=== PATIENT | male | born 1935 | race Caucasian/White ===

== ENCOUNTER 2017-10-12 00:03 | Emergency (ER) | payer MEDICARE, MEDICAID ==
[~2017-10-12] VITALS: Ht 162.6 cm; Wt 63.5 kg
--- NOTE | 2017-10-12 00:11 | NUR ---
PT RECEIVED BY RA60 C/O GEN WEAKNESS X1 HOUR NEAR RED LINE. NO SOB NOTED AT THIS TIME. NO C/O PAIN. WILL CONTINUE TO MONITOR FOR ANY CHANGES. VSS NAD
[2017-10-12] MEDS ORDERED: IV NS 0.9% 500 ML BAG IV ONE (00:30)
--- NOTE | 2017-10-12 00:30 | NUR ---
BLOOD SENT OFF TO LAB
--- NOTE | 2017-10-12 00:32 | NUR ---
PT OFF TO CT SCAN
--- NOTE | 2017-10-12 00:40 | NUR ---
POWER NUT RUNNER OPERATOR AT BEDSIDE
--- NOTE | 2017-10-12 00:42 | NUR ---
PT BACK FROM CT SCAN
[2017-10-12 00:45] LABS: BASOPHILS % (AUTO) 0.4 % (0.0-2.0); EOSINOPHILS # (AUTO) 0.1 /CMM (0.0-0.7); EOSINOPHILS % (AUTO) 1.6 % (0.0-6.0); HEMATOCRIT 36 % (39-51); HEMOGLOBIN 12.1 g/dL (13.5-17.5); LYMPHOCYTES # (AUTO) 1.9 /CMM (0.8-4.8); LYMPHOCYTES % (AUTO) 26.8 % (20.0-44.0); MEAN CORPUSCULAR HEMOGLOBIN 32 PG (26.0-33.0); MEAN CORPUSCULAR HGB CONC 34 g/dl (31.0-36.0); MEAN CORPUSCULAR VOLUME 92 fL (80-96); MONOCYTES % (AUTO) 14.1 % (2.0-12.0); NEUTROPHILS # (AUTO) 4.1 /CMM (1.8-8.9); NEUTROPHILS % (AUTO) 57.1 % (43.0-81.0); PLATELET COUNT (AUTO) 316 /CMM (150-450); RDW COEFFICIENT OF VARIATION 14.8 (11.5-15.0); RED BLOOD CELL COUNT(AUTO) 3.85 MIL/uL (4.5-6.0); WHITE BLOOD COUNT (AUTO) 7.2 K/uL (4.3-11.0)
[2017-10-12 00:46] LABS: APPEARANCE,URINE CLEAR (CLEAR); BILIRUBIN,URINE NEGATIVE (NEGATIVE); BLOOD, URINE 1+ Ery/uL (NEGATIVE); COLOR,URINE YELLOW (YELLOW); KETONES,URINE NEGATIVE (NEGATIVE); LEUKOCYTE ESTERASE ,URINE NEGATIVE (NEGATIVE); NITRITE, URINE NEGATIVE (NEGATIVE); PH,URINE 5.5 (5.0-8.0); PROTEIN,URINE 2+ mg/dl (NEGATIVE); UGLUCOSE NEGATIVE (NEGATIVE); UROBILINOGEN,URINE 0.2 EU/dL (0.2)
[2017-10-12 01:06] LABS: CALCIUM, SERUM 8.7 mg/dL (8.5-10.1); CARBON DIOXIDE 28 mmol/L (21-32); CHLORIDE 107 mmol/L (98-107); CREATININE 0.9 mg/dL (0.6-1.3); GLUCOSE 73 mg/dL (74-106); POTASSIUM 3.5 mmol/L (3.5-5.1); SODIUM SERUM 143 mmol/L (136-145); UREA NITROGEN, BLOOD 19 mg/dL (7-18)
[2017-10-12 01:07] LABS: TROPONIN I 0.054 ng/mL (0.00-0.056)
[2017-10-12 01:11] LABS: ALANINE AMINOTRANSFERASE 22 U/L (12-78); ALBUMIN 3.4 g/dL (3.4-5.0); ALCOHOL, BLOOD < 3 mg/dL (0-0); ALKALINE PHOSPHATASE 101 U/L (46-116); ASPARTATE AMINOTRANSFERASE 21 U/L (15-37); BILIRUBIN,DIRECT 0.1 mg/dL (0.0-0.2); BILIRUBIN,TOTAL 0.2 mg/dL (0.2-1.0); TOTAL PROTEIN, SERUM 7.5 g/dL (6.4-8.2)
[2017-10-12 01:12] LABS: INR 1.07 (0.87-1.13); SALICYLATE 0.3 mg/dL (2.8-20.0)
[2017-10-12 01:19] LABS: BACTERIA,URINE Few /HPF (None Seen); SQUAMOUS EPITHELIAL CELL,UR Rare /HPF (None Seen); WBC,URINE 0-2 /HPF (0-3)
--- NOTE | 2017-10-12 02:36 | NUR ---
PT IS IN STABLE CONDITION. VSS NAD. WILL CONTINUE TO MONITOR FOR ANY CHANGES
[2017-10-12 05:26] VITALS: BP 149/80
--- NOTE | 2017-10-12 05:26 | NUR ---
PT WAITING IN WIAITING ROOM FOR CAB
== END 2017-10-12 05:28 | disposition home or self-care (01) ==
LOC: ER 00:06 → EDBD 00:06 → ER 05:28
DX: R53.1 Weakness (principal); I73.9 Peripheral vascular disease, unspecified; R51 Headache
CPT/HCPCS: 36415; 70450; 71045; 80048; 80076; 80305; 80329; 81001; 84484; 85025; 85730; 93005; 99285; A4606; G0480; J7040; 81000-TC; Z7610

== ENCOUNTER 2019-07-14 14:22 | Emergency (ER) | payer MEDICARE, MEDICAID ==
[~2019-07-14] VITALS: Ht 180.3 cm; Wt 66.2 kg
--- NOTE | 2019-07-14 14:56 | NUR ---
patient [id number] homeless, c/o lower back pain x 1 week. On room air, breathing evenly and unlabored. connected to the monitor and pulse ox. Kept comfortable, will continue to monitor accordingly.
[2019-07-14] MEDS ORDERED: CYCLOBENZAPRINE 10 MG TABLET PO ONE (15:00)
[2019-07-14] MEDS ORDERED: KETOROLAC TROMETHAMINE INJ 60 MG/2 ML VIAL IM ONE ×3 (15:00→15:30)
[2019-07-14] MEDS ORDERED: CYCLOBENZAPRINE 10 MG TABLET ONE (15:03)
[2019-07-14 16:11] VITALS: BP 128/66
--- NOTE | 2019-07-14 16:12 | NUR ---
Patient given written and verbal discharge instructions. Patient verbalizes understanding of instructions. Patient is ambulatory with steady gait. Refuses offer of assisted placement. Patient given list of available shelters in surrounding area. food and tap card provided.
== END 2019-07-14 16:11 | disposition home or self-care (01) ==
LOC: ER 14:23
DX: G89.29 Other chronic pain (principal); M54.5 Low back pain
CPT/HCPCS: 96372; 99283; J1885

== ENCOUNTER 2021-06-29 20:42 | Inpatient (IN) | payer OTHER ==
[~2021-06-29] VITALS: Ht 177.8 cm; Wt 67.7 kg
--- NOTE | 2021-06-29 21:05 | NUR ---
pt bibra c/o rt hip pain. Pt aaox2 breathing evenly and unlabored. Per pt he has "been walking a lot" and that is the cause of his pain. Pt attached to monitor and pox. PA at bedside for eval. Pt given blanket and call light within reach
[2021-06-29] MEDS ORDERED: ACETAMINOPHEN 325 MG TABLET ONE (21:26)
[2021-06-29] MEDS ORDERED: ACETAMINOPHEN 325 MG TABLET PO ONE (21:30)
--- NOTE | 2021-06-29 22:00 | NUR ---
pt watching tv, attached to monitor and pox
--- NOTE | 2021-06-29 23:00 | NUR ---
Pt sitting quietly, watching tv. vss
--- NOTE | 2021-06-30 | NUR ---
pt watching tv, attached to monitor and pox
--- NOTE | 2021-06-30 01:00 | NUR ---
Patient is resting comfortably in bed with eyes closed. Easily aroused. VSS
--- NOTE | 2021-06-30 02:00 | NUR ---
pt sleeping, attached to monitor, breathing evenly and unlabored
--- NOTE | 2021-06-30 03:00 | NUR ---
Patient is resting comfortably in bed with eyes closed. Easily aroused. VSS
--- NOTE | 2021-06-30 04:00 | NUR ---
pt sleeping, attached to monitor, breathing evenly and unlabored
--- NOTE | 2021-06-30 06:05 | NUR ---
Patient is resting comfortably in bed with eyes closed. Easily aroused. VSS
--- NOTE | 2021-06-30 08:00 | NUR ---
THE PATIENT IS ALERT AND ORIENTED X4. DENIES PAIN. IN ROOM AIR AND DENIES SOB. RESPIRATION REGULAR AND UNLABORED. WILL CONTINUE TO MONITOR THE PATIENT.
--- NOTE | 2021-06-30 10:16 | NUR ---
FINISHING TECHNICIAN AT THE BEDSIDE
--- NOTE | 2021-06-30 11:23 | NUR ---
BLOOD SPECIMEN COLLECTED AND SENT TO THE LAB
--- NOTE | 2021-06-30 11:23 | NUR ---
COVID SWAB DONE AND SENT TO THE LAB
[2021-06-30 11:41] LABS: CALCIUM, SERUM 9.2 mg/dL (8.5-10.1); CARBON DIOXIDE 27 mmol/L (21-32); CHLORIDE 103 mmol/L (98-107); CREATININE 1.9 mg/dL (0.6-1.3); GLUCOSE 110 mg/dL (74-106); POTASSIUM 4.6 mmol/L (3.5-5.1); SODIUM SERUM 140 mmol/L (136-145); UREA NITROGEN, BLOOD 40 mg/dL (7-18)
--- NOTE | 2021-06-30 11:54 | NUR ---
DR SOSA AT THE BEDSIDE
[2021-06-30 12:02] LABS: BASOPHILS % (AUTO) 0.4 % (0.0-2.0); EOSINOPHILS % (AUTO) 4.6 % (0.0-6.0); HEMATOCRIT 35 % (39-51); HEMOGLOBIN 11.5 g/dL (13.5-17.5); LYMPHOCYTES # (AUTO) 1.4 K/uL (0.8-4.8); LYMPHOCYTES % (AUTO) 16.8 % (20.0-44.0); MEAN CORPUSCULAR HGB CONC 33 g/dl (31.0-36.0); MEAN CORPUSCULAR VOLUME 91 fL (80-96); MONOCYTES % (AUTO) 11.9 % (2.0-12.0); NEUTROPHILS # (AUTO) 5.5 K/uL (1.8-8.9); NEUTROPHILS % (AUTO) 66.3 % (43.0-81.0); PLATELET COUNT (AUTO) 491 K/uL (150-450); RED BLOOD CELL COUNT(AUTO) 3.89 MIL/uL (4.5-6.0); WHITE BLOOD COUNT (AUTO) 8.2 K/uL (4.3-11.0)
[2021-06-30] MEDS ORDERED: MAG HYDROX/AL HYDROX/SIMETH 30 ML UDC PO PRN ×2 (12:30→14:15)
[2021-06-30] MEDS ORDERED: MAGNESIUM HYDROXIDE 30 ML UDC PO PRN ×2 (12:30→14:15)
[2021-06-30] MEDS ORDERED: ONDANSETRON HCL/PF 4 MG/2 ML VIAL IVP PRN ×2 (12:30→14:15)
[2021-06-30] MEDS ORDERED: HYDROCODONE/APAP 5/325MG TABLET PO PRN (12:30)
[2021-06-30] MEDS ORDERED: ZOLPIDEM TARTRATE 5 MG TABLET PO PRN ×2 (12:30→14:15)
[2021-06-30] MEDS ORDERED: ACETAMINOPHEN 325 MG TABLET PO PRN ×2 (12:30→14:15)
[2021-06-30] MEDS ORDERED: Z GUARD REMEDY 2 OZ OINT TP PRN ×2 (12:30→14:15)
[2021-06-30] MEDS ORDERED: IV 1/2NS 1000 ML 1,000 ML IV PRN ×2 (12:30→14:15)
[2021-06-30] MEDS ORDERED: SERT25TA PO (12:46)
[2021-06-30] MEDS ORDERED: LAMO25TA10 PO (12:46)
[2021-06-30] MEDS ORDERED: TRAM50TA2 PO (12:46)
[2021-06-30] MEDS ORDERED: LISI-768 PO (12:46)
[2021-06-30] MEDS ORDERED: IBUP-1955 PO (12:46)
[2021-06-30] MEDS ORDERED: MORP15TA7 PO (12:46)
[2021-06-30] MEDS ORDERED: DOCU-141 PO (12:46)
[2021-06-30] MEDS ORDERED: ASPI-1169 PO (12:46)
--- NOTE | 2021-06-30 14:05 | NUR ---
ROOM 116-1
--- NOTE | 2021-06-30 14:08 | NUR ---
REPORT GIVEN TO NURSE APARNA
--- NOTE | 2021-06-30 14:10 | NUR ---
THE PATIENT IS TRANSFERED TO [facility] IN STABLE CONDITION AND PER POLICY
[2021-06-30] MEDS: HYDROCODONE/APAP 5/325MG TABLET PO PRN (14:57)
[2021-06-30] MEDS: LamoTRIgine 25 MG TABLET PO SCH (18:11)
[2021-06-30] MEDS: MORPHINE SULFATE SR 15 MG TABLET.SA PO SCH (18:13)
--- NOTE | 2021-06-30 19:15 | NUR ---
MS RN OPENING NOTE PATIENT RESTING IN BED, ALERT/ORIENTED X 3, PT ABLE TO MAKE NEEDS KNOWN. PT STABLE ON ROOM AIR, NO S/S OF DISTRESS OR SOB NOTED, BREATHING EVEN AND UNLABORED. LEFT AC #20G IV ACCESS INTACT AND FLUSHING WELL, SALINE LOCKED. NO COMPLAINTS OF PAIN AT THIS TIME. LEFT UPPER CHEST WOUND DRESSING CLEAN, DRY AND INTACT. SAFETY MEASURES IN PLACE: CALL LIGHT WITHIN REACH, BED LOCKED IN LOW POSITION, SIDE RAILS UP X 3, BED ALARM ON. WILL CONTINUE TO MONITOR PATIENT
[2021-06-30 20:00] VITALS: BP 186/79
--- NOTE | 2021-06-30 20:20 | NUR ---
MS RN NOTE CONTACTED DR. HERNÁNDEZ REGARDING PT'S HIGH BP OF 186/79, HR: 78. NEW ORDER FOR HYDRALAZINE 10 MG IVP PRN Q8H FOR SBP > 150. ORDER READBACK AND CONFIRMED. ORDER CARRIED OUT. WILL CONTINUE TO MONITOR PATIENT.
[2021-06-30] MEDS: hydrALAZINE HCL IV 20 MG VIAL IV PRN (20:59)
--- NOTE | 2021-06-30 23:44 | NUR ---
MS RN NOTE CONTACTED DR. HERNÁNDEZ BECAUSE PT'S BP IS STILL HIGH: BP 187/84, HR: 92, SPO2: 100%. NEW ONE TIME ORDER FOR HYDRALAZINE 10 MG IVP. ORDER READBACK AND CONFIRMED. ORDER CARRIED OUT. WILL CONTINUE TO MONITOR PATIENT.
[2021-07-01] MEDS ORDERED: hydrALAZINE HCL IV 20 MG VIAL IV ONE ×2 (00:05→23:45)
[2021-07-01 04:03] VITALS: BP 127/68
[2021-07-01] MEDS: HYDROCODONE/APAP 5/325MG TABLET PO PRN ×2 (04:55→20:17)
--- NOTE | 2021-07-01 06:25 | NUR ---
MS RN CLOSING NOTE PATIENT SLEEPING IN BED, ALERT/ORIENTED X 2-3, PT FORGETFUL/CONFUSED AT TIMES THROUGHOUT SHIFT. PT STABLE ON ROOM AIR, NO S/S OF DISTRESS OR SOB NOTED, BREATHING EVEN AND UNLABORED. LEFT AC #20G IV ACCESS INTACT AND RUNNING 1/2 NS @ 75 ML/HR. PATIENT'S BP NO LONGER HIGH, 4 AM BP WAS 127/68. PATIENT UNSTABLE WHEN WALKING WITH CANE SO BEDSIDE COMMODE PLACED BY BED TO BE USED WITH ASSIST. MEDICATIONS GIVEN ORDERED, PT NEEDS MET THROUGHOUT SHIFT. SAFETY MEASURES IN PLACE: CALL LIGHT WITHIN REACH, BED LOCKED IN LOW POSITION, SIDE RAILS UP X 3, BED ALARM ON. WILL ENDORSE TO DAY SHIFT NURSE FOR CONTINUITY OF CARE
[2021-07-01] MEDS ORDERED: PANTOPRAZOLE 40 MG TABLET.DR PO SCH (07:30)
--- NOTE | 2021-07-01 07:30 | NUR ---
MS RN OPENING NOTE RECEIVED PATIENT AWAKE ON BED AND A/O X3 WITH CONFUSION. ABLE TO MAKE NEEDS KNOWN. ON ROOM AIR TOLERATING WELL. NO SOB NOTED. NOT IN DISTRESS. WITH NO COMPLAINTS OF PAIN OR DISCOMFORT AT THIS TIME. WITH IV ACCESS AT LEFT AC G20 WITH 1/2NS AT 75ML/HR. SAFETY MEASURES IN PLACE. CALL LIGHT WITHIN REACH. BED ON LOWEST AND LOCKED POSITION, SIDE RAILS UP X3. BED ALARM ON. WILL CONTINUE TO MONITOR.
[2021-07-01] MEDS: DOCUSATE SODIUM 100 MG CAPSULE PO SCH (08:28)
[2021-07-01] MEDS: MORPHINE SULFATE SR 15 MG TABLET.SA PO SCH ×2 (08:28→16:34)
[2021-07-01] MEDS: ASPIRIN 81 MG TAB.CHEW PO SCH (08:28)
[2021-07-01] MEDS: PANTOPRAZOLE 40 MG TABLET.DR PO SCH (08:29)
[2021-07-01] MEDS: SERTRALINE HCL 25 MG TABLET PO SCH (08:29)
[2021-07-01] MEDS: LamoTRIgine 25 MG TABLET PO SCH ×2 (08:29→16:34)
[2021-07-01] MEDS ORDERED: LISINOPRIL (5MG) 5 MG TABLET PO SCH (09:00)
[2021-07-01 12:00] VITALS: BP 130/79
--- NOTE | 2021-07-01 14:22 | NUR ---
SS Consult: SS consult requested for homelessness & failure to thrive. The pt. is an 85-year-old male in [place] admitted for failure to thrive. Per EMR, pt. [place] of pain in his left hip. He is homeless". SW met with pt. bedside. Pt. is A&O X 2 appears unkempt, sun-burned and makes avoidant eye contact. Pt. is confused with possible dementia. Pt.'s mood is euthymic, ambivalent and guarded. SW explored pt.s living situation and familial/ support system. Pt. stated he is with no children and had experienced homelessness for about 20 years. Pt. stated he was recently residing at maybe a [facility] but he felt unwanted by other residents and management and so he left. Pt. could not provide facility name, address or phone number or provide any other HX. P.t. denies drug or alcohol abuse. Pt. denies SI/HI and denies hallucinations. Per EMR, pt. ambulates with unsteady gate with cane so he was give a bed side commode. Per pt. he receives SSDI. Plan: DAVID discussed situation with Jacque ALFARO who will work on possible placement: SNF or B&[facility]. Pt. stated if he cannot receive placement he will have to find a motel. Pt. signed homeless waiver and it was placed in the pt.'s chart. SW provided pt. with homeless resources and pt. accepted them. Year-round shelters: [facility] [place] [address] [place] [address] ; [facility] [place] [address] [place] [address]; [facility] [id number] [facility] [address] Winter Shelters: Shani [place] Provider: [facility] [place] Address: [address], [address] # of Beds: 47 Population Served: [facility] 6 | [facility] Wendie Ewing [place] Provider: [facility] Address: [address] [facility], [address] # of Beds: 66 Population Served: [facility] Provider: [facility] to Serve Address: [address] [facility], [address] # of Beds: 56 Population Served: Luc Eddie [place] Provider: /Ms. Melendez'isha House Address: [address] [facility], [address] # of Beds: 49 Population Served: [facility] [place] 8 | [facility] Provider: First to Serve Address: [address] [facility], [address] # of Beds: 37 Population Served: [facility] Hygiene: [facility]: [address] [facility] ; [facility] [address] [facility] ; [facility] [address] [facility] . Food Resources: [facility] at [facility]- [address] [facility]; Meet Each Need with Dignity ([facility]) [address] [facility]; [facility] [address] [facility]; [facility] 8554 [facility] Mental Health resources provided: [facility] [address] [place], [place] [id number] ; [facility] [address] [facility] [address], [place], [place] [id number] ; Taylor Collazo [facility] [address] [place] [address] ; [facility] [address] [place], [place] [id number] Healthcare Clinics: [facility] [address] [facility], [address] [place]. [place] ; [facility] [address] [facility] [address] [place] [address]; [facility] [address] [facility] [place] [address] 223) [phone] Counseling--Outpatient [facility] [address] [place], [place] [address] (Specializes in in-depth psychotherapy for emotional distress: anxiety, depression, interpersonal conflicts, life transitions, childhood abuse) [facility] Guidance Center [address] [place], [place] [phone] (Assist with solving problem marital difficulties, separation & divorce, aging parents, & grief, chronic & terminal illness) [facility] [address] [place] [address] (Deal with loss & grief, anxiety, marital difficulties) Homebound/Mental Health Services [address] [facility] [address] [place] [address] (Provide in-home mental services to people who are incapable of leaving their homes) [facility] Needs of the Elderly Senior Service/Resource Center [address] [place] [address] [facility] [address] [place] [address] PSYCHIATRIC OUTPATIENT SERVICES [facility] Partial Hospitalization and Intensive Outpatient Program (Managed Care and [place] Only)[address] [facility] [phone] [facility] Partial Hospitalization and Outpatient [id number] [facility] [address] [place], [place] [phone] [facility] [id number] [facility] [address] [place], [place] [phone] [facility] Partial Hospitalization and Outpatient [id number] [place], [phone] Substance Abuse resources provided included: [facility] Substance Abuse Self-Helpline (SAS) ; CRI -HELP [address] Ariel [facility] [id number] ; [facility] [address] [facility] [address] ; [facility] [address] [facility]. [facility] [address] ; [facility]ically [facility] [address] [facility] [address] ; [facility] [address] [facility] [address] ; [facility] [address] [facility] [address] ; [facility] Substance Abuse Helpline([facility] [place] ; [facility] ; [facility] [place]; [facility] [place]; [facility] [place]; [facility] Adriano Coronel; [employer] [facility] [place]; [facility] [place]; [facility]; [facility] [place]; Alcoholics Anonymous -SFV; Tr-Ctwk-Tnelijp ; Marijuana Anonymous -SFV; Narcotics Anonymous [email or web address];
--- NOTE | 2021-07-01 18:37 | NUR ---
MS RN CLOSING NOTES PATIENT RESTING ON BED AND A/O X3 WITH CONFUSION AT TIMES. ABLE TO MAKE NEEDS KNOWN. ON ROOM AIR TOLERATING WELL. NO SOB NOTED. NOT IN DISTRESS. WITH NO COMPLAINTS OF PAIN OR DISCOMFORT AT THIS TIME. WITH IV ACCESS AT LEFT AC G20 WITH 1/2NS AT 75ML/HR. SAFETY MEASURES IN PLACE. CALL LIGHT WITHIN REACH. BED ON LOWEST AND LOCKED POSITION, SIDE RAILS UP X3. BED ALARM ON. WILL ENDORSE TO NEXT SHIFT FOR ELVIRA.
[2021-07-01 20:00] VITALS: BP 120/59
--- NOTE | 2021-07-01 20:22 | NUR ---
MS-1/SPOT WELDER BODY ASSEMBLY PT COMPLIANT WITH FALL RISK MEASURES. PACING AROUND HIS ROOM IS HIGHLY AGITATED AND SWEARING AT STAFF. I'M SITTING OUTSIDE PT ROOM FOR CLOSER MONITORING.
--- NOTE | 2021-07-01 20:49 | NUR ---
MS-1/ZINA UNABLE TO OBTAIN URINE SPECIMEN. PT IS UNCOOPERATIVE WITH PROCEDURES NECESSARY TO OBTAIN URINE. WANTS TO USE THE TOILET ALONE AND WITHOUT BEING BOTHERED. EXPLAINED TO PT THAT THE DOCTOR ORDERED A URINE TEST, BUT PT SAYS HE DOESN'T CARE.
[2021-07-02 04:00] VITALS: BP 135/70
[2021-07-02 07:01] LABS: BASOPHILS % (AUTO) 0.3 % (0.0-2.0); EOSINOPHILS % (AUTO) 5.2 % (0.0-6.0); HEMATOCRIT 30 % (39-51); LYMPHOCYTES # (AUTO) 1.7 K/uL (0.8-4.8); LYMPHOCYTES % (AUTO) 20.9 % (20.0-44.0); MEAN CORPUSCULAR HGB CONC 34 g/dl (31.0-36.0); MEAN CORPUSCULAR VOLUME 89 fL (80-96); MONOCYTES % (AUTO) 13.2 % (2.0-12.0); NEUTROPHILS # (AUTO) 4.8 K/uL (1.8-8.9); NEUTROPHILS % (AUTO) 60.4 % (43.0-81.0); PLATELET COUNT (AUTO) 408 K/uL (150-450); RED BLOOD CELL COUNT(AUTO) 3.31 MIL/uL (4.5-6.0)
[2021-07-02 07:14] LABS: CREATINE KINASE, TOTAL 230 U/L (39-308)
[2021-07-02 07:22] LABS: ALANINE AMINOTRANSFERASE 21 U/L (12-78); ALBUMIN 2.8 g/dL (3.4-5.0); ALKALINE PHOSPHATASE 83 U/L (46-116); ASPARTATE AMINOTRANSFERASE 24 U/L (15-37); BILIRUBIN,TOTAL 0.4 mg/dL (0.2-1.0); CALCIUM, SERUM 8.2 mg/dL (8.5-10.1); CARBON DIOXIDE 26 mmol/L (21-32); CHLORIDE 105 mmol/L (98-107); CREATININE 1.4 mg/dL (0.6-1.3); GLUCOSE 91 mg/dL (74-106); MAGNESIUM 1.8 mg/dL (1.8-2.4); PHOSPHORUS 2.9 mg/dL (2.5-4.9); POTASSIUM 4.4 mmol/L (3.5-5.1); SODIUM SERUM 138 mmol/L (136-145); TOTAL PROTEIN, SERUM 6.8 g/dL (6.4-8.2); UREA NITROGEN, BLOOD 26 mg/dL (7-18)
[2021-07-02] MEDS: LamoTRIgine 25 MG TABLET PO SCH ×2 (08:44→16:17)
[2021-07-02] MEDS: MORPHINE SULFATE SR 15 MG TABLET.SA PO SCH ×2 (08:44→16:18)
[2021-07-02] MEDS: SERTRALINE HCL 25 MG TABLET PO SCH (08:44)
[2021-07-02] MEDS: ASPIRIN 81 MG TAB.CHEW PO SCH (08:44)
[2021-07-02] MEDS: DOCUSATE SODIUM 100 MG CAPSULE PO SCH (08:44)
[2021-07-02] MEDS: PANTOPRAZOLE 40 MG TABLET.DR PO SCH (08:44)
[2021-07-02] MEDS: ENSURE ENLIVE CHOC 237 ML CAN PO SCH ×3 (10:27→17:33)
[2021-07-02 12:00] VITALS: BP 135/70
[2021-07-02 15:17] LABS: BILIRUBIN,URINE SMALL (NEGATIVE); COLOR,URINE YELLOW (YELLOW); LEUKOCYTE ESTERASE ,URINE NEGATIVE (NEGATIVE); NITRITE, URINE NEGATIVE (NEGATIVE); PH,URINE 5.5 (5.0-8.0); PROTEIN,URINE 30 mg/dl (NEGATIVE); UGLUCOSE NEGATIVE (NEGATIVE)
[2021-07-02 15:48] LABS: CREATININE, URINE 241.6 MG/DL (30.0-125.0)
[2021-07-02 15:55] LABS: BACTERIA,URINE Few /HPF (None Seen); SQUAMOUS EPITHELIAL CELL,UR Few /HPF (None Seen); WBC,URINE 0-2 /HPF (0-3)
--- NOTE | 2021-07-02 17:54 | NUR ---
RN CLOSING NOTES PT IS STABLE AND ATE 100% DINNER. A/O X4. VS STABLE AND WNL. UPPER L CHEST WOUND WITHOUT DRAINAGE. ALL MEDS GIVEN. PATIENT ON RA SAT > 95%. PT AMBULATING WITH BED AT LOWEST POSITION. WILL CONTINUE TO MONITOR.
[2021-07-02] MEDS: HYDROCODONE/APAP 5/325MG TABLET PO PRN (18:36)
--- NOTE | 2021-07-02 19:00 | NUR ---
MS RN OPENING NOTE RECEIVED PT IN BED, RESTING. A/O X2. PT IS ON ROOM AIR, NO SOB OR RESPIRATORY DISTRESS NOTED, NO C/O PAIN. RESPIRATIONS EVEN AND UNLABORED, IV ACCESS NOTED IN LEFT AC G#20, INTACT, PATENT AND FLUSHING WELL. FALL AND SAFETY MEASURES IN PLACE AND MAINTAINED AT ALL TIMES. BED ALARM ON, BED IN LOW AND LOCKED POSITION, HOB ELEVATED TO SEMI FOWLERS POSITION, CALL LIGHT AND TABLE WITHIN REACH, SIDE RAILS UP X2. WILL CONTINUE TO MONITOR.
[2021-07-02 20:00] VITALS: BP 118/79
[2021-07-03 04:00] VITALS: BP 117/69
[2021-07-03] MEDS: PANTOPRAZOLE 40 MG TABLET.DR PO SCH (07:33)
--- NOTE | 2021-07-03 07:46 | NUR ---
MS RN OPENING NOTE RECEIVED PT AWAKE IN BED. A/O X3. PT IS STABLE ON ROOM AIR WITH NO SOB OR S/S OF RESPIRATORY DISTRESS NOTED. PT HAS NO C/O PAIN OR DISCOMFORT AT THIS TIME. IV ACCESS IN LAC #20, INTACT AND PATENT. LEFT UPPER CHEST WOUND C/D/I. SAFETY PRECAUTIONS MAINTAINED. BED IN LOWEST LOCKED POSITION, HOB ELEVATED, SIDE RAILS UP X2. CALL LIGHT AND TABLE WITHIN REACH. WILL CONTINUE TO MONITOR.
[2021-07-03 08:00] VITALS: BP 186/86
[2021-07-03 08:05] LABS: CALCIUM, SERUM 8.5 mg/dL (8.5-10.1); CARBON DIOXIDE 25 mmol/L (21-32); CHLORIDE 103 mmol/L (98-107); CREATININE 1.4 mg/dL (0.6-1.3); GLUCOSE 95 mg/dL (74-106); POTASSIUM 4.3 mmol/L (3.5-5.1); SODIUM SERUM 136 mmol/L (136-145); UREA NITROGEN, BLOOD 28 mg/dL (7-18)
[2021-07-03] MEDS: SERTRALINE HCL 25 MG TABLET PO SCH (08:24)
[2021-07-03] MEDS: ASPIRIN 81 MG TAB.CHEW PO SCH (08:24)
[2021-07-03] MEDS: LamoTRIgine 25 MG TABLET PO SCH ×2 (08:24→16:15)
[2021-07-03] MEDS: DOCUSATE SODIUM 100 MG CAPSULE PO SCH (08:24)
[2021-07-03] MEDS: MORPHINE SULFATE SR 15 MG TABLET.SA PO SCH ×2 (08:26→16:15)
[2021-07-03] MEDS: ENSURE ENLIVE CHOC 237 ML CAN PO SCH ×3 (08:55→16:15)
[2021-07-03 12:00] VITALS: BP 131/71
[2021-07-03] MEDS: HYDROCODONE/APAP 5/325MG TABLET PO PRN ×3 (13:10→22:00)
--- NOTE | 2021-07-03 13:10 | NUR ---
RN NOTE - PAIN PT C/O ACHING PAIN IN LEFT HIP, RATED 7/10 ON 0-10 PAIN SCALE. VSS. PER PT REQUEST, ADMINISTERED NORCO [phone] PO Q4H PRN FOR PAIN. WILL CONTINUE TO MONITOR.
--- NOTE | 2021-07-03 18:25 | NUR ---
MS RN CLOSING NOTE PT IS AWAKE IN BED. A/O X3. PT IS STABLE ON ROOM AIR WITH NO SOB OR S/S OF RESPIRATORY DISTRESS NOTED. PT HAS NO C/O PAIN OR DISCOMFORT AT THIS TIME. IV ACCESS IN LAC #20, INTACT AND PATENT. LEFT UPPER CHEST WOUND C/D/I. ALL NEEDS HAVE BEEN MET. SAFETY PRECAUTIONS MAINTAINED AT ALL TIMES. BED IN LOWEST LOCKED POSITION, HOB ELEVATED, SIDE RAILS UP X2. CALL LIGHT AND TABLE WITHIN REACH. WILL ENDORSE TO ONCOMING NURSE FOR ELVIRA.
[2021-07-03 20:00] VITALS: BP 149/72
[2021-07-04 04:00] VITALS: BP 148/70
[2021-07-04 05:06] VITALS: BP 153/75
--- NOTE | 2021-07-04 07:00 | NUR ---
RN NOTES, NO SIGNIFICANT CHANGE IN CONDITION DURING THE NIGHT, WOUND CONSULT PLACED FOR LEFT UPPER CHEST ABRASION/INGROW TISSUE WILL ENDORSE CONTINUITY OF CARE TO ONCOMING NURSE.
[2021-07-04] MEDS: ENSURE ENLIVE CHOC 237 ML CAN PO SCH ×3 (08:00→17:09)
[2021-07-04] MEDS: LamoTRIgine 25 MG TABLET PO SCH ×2 (08:11→17:08)
[2021-07-04] MEDS: MORPHINE SULFATE SR 15 MG TABLET.SA PO SCH ×2 (08:12→17:09)
[2021-07-04] MEDS: PANTOPRAZOLE 40 MG TABLET.DR PO SCH (08:18)
[2021-07-04] MEDS: DOCUSATE SODIUM 100 MG CAPSULE PO SCH (09:00)
[2021-07-04] MEDS: SERTRALINE HCL 25 MG TABLET PO SCH (09:00)
[2021-07-04] MEDS: ASPIRIN 81 MG TAB.CHEW PO SCH (09:00)
--- NOTE | 2021-07-04 10:11 | NUR ---
WOUND CARE CONSULT: PT SEEN FOR RAISED LESION TO LEFT CHEST, PRESENT ON ADMISSION. PT STATES HAS HAD THIS FOR 60 YEARS. SURGICAL CONSULT CALLED TO DR TRAORE. PT IS AMBULATORY AND CONTINENT. CONCUR WITH CURRENT TREATMENT OF XEROFORM DSG WITH [facility]. IN AGREEMENT WITH PLAN OF CARE.
[2021-07-04 12:00] VITALS: BP 148/76
--- NOTE | 2021-07-04 13:59 | NUR ---
PATIENT AMBULATING IN [address] WAY ESCORTED BACK TO ROOM, PULLED OUT HIS OWN IV ON JODY, SITE CLEANSED PRESSURE APPLIED AND BANDAGE NO EXCESSIVE BLEEDING NOTED, EDUCATE IMPORTANCE OF KEEPING IV INTACT FOR NEED AND USE, STATED "I DO NOT CARE, I WANT MY SHAKE" PATIENT GIVEN HIS PROTEIN SHAKE/ENSURE ON ICE REQUESTED WITH A STRAW, IN BED RELAXING WATCHING TV, BED LOW TO FLOOR, WHEELS LOCKED, CALL LIGHT IN REACH, WILL CONTINUE TO MONITOR.
[2021-07-04] MEDS ORDERED: LIDOCAINE 1%-EPI 1:100,000 20 ML VIAL TP STA (14:50)
[2021-07-04] MEDS ORDERED: SILVER NITRATE APPLICATOR 1 EA BOX TP STA (14:50)
--- NOTE | 2021-07-04 16:01 | NUR ---
SS Consult: SS consult requested for homelessness. Pt. is a 85-year-old male who stated he came in due to leg pain. Pt. stated he has had two operations on his legs and was in pain. Pt. was alert and oriented x 3. Pt. was cooperative throughout assessment. Pt. appeared disheveled and provided appropriate eye contact. Pt.s speech was increased and pt. had impaired hearing. Pt. stated he was homeless before arriving at the hospital. Pt. stated he has no family or friends. Pt. stated he receives $963 of social security each month. Pt. stated he was having trouble walking and received a cane and physical therapy. Pt. denied substance and drug abuse and stated he quit three years ago. Pt. denies psychiatric diagnoses and SI/HI. Upon discharge, pt. stated he will go to a motel. Pt. had already received homeless resources and DAVID reviewed the packet with the pt. DAVID Dill has met with patient and has provided resources for homeless shelters.
[2021-07-04 20:00] VITALS: BP 141/75
--- NOTE | 2021-07-04 20:00 | NUR ---
PATIENT PULLED OUT IV, WAS AMBULATING IN LAU WAY ON OWN STEADY GAIT , BACK HUNCHED OVER FOR SUPPORT, HOLLERING HE WANTS TO GO HOME, REDIRECTED AND EDUCATED ON IMPORTANCE OF STAYING HERE TO RECEIVE TREATMENT AND CARE, RIGHT AC 20 GAUGE APPLIED INTACT PATENT FLUSHING, - ADVISED RN ONCOMING SHIFT PATIENT WILL PULL AND TUG ON DEVICE, IT IS STRAPPED AND TAPED FOR SECURE, ORDERS FOR WOUND CARE NURSE AND THE BIOPSY ARE IN THE CASSETTE - SILVER NITRATE AND LIDOCAINE FOR THE TREATMENT - IT DID NOT OCCUR DURING AM SHIFT, ENDORSED TO ONCOMING RN SHIFT THAT ITEMS ARE IN CASSETTE AND READY FOR USE WHEN BIOPSY OF UPPER LEFT CHEST WOUND IS ASSESSED. BED LOW TO FLOOR, WHEELS LOCKED, CALL LIGHT IN REACH.
--- NOTE | 2021-07-04 20:30 | NUR ---
RN NOTE PATIENT ALERT AND RESPONSIVE, ABLE TO MAKE NEEDS KNOWN. ON ROOM AIR, NO S/S OF RESPIRATORY DISTRESS. C/O OF PAIN, WILL ADMINISTER DUE PAIN MEDS. AMBULATED TO BATHROOM WITH ASSISTANCE, VOIDED X1. IV ACCESS RIGHT AC #20 PATENT AND INTACT, KEPT SECURED. BED LOCKED AND IN LOWEST POSITION. CALL LIGHT WITHIN REACH. ALL NEEDS ANTICIPATED.
[2021-07-04] MEDS: HYDROCODONE/APAP 5/325MG TABLET PO PRN (21:04)
[2021-07-04 21:55] VITALS: BP 160/81
--- NOTE | 2021-07-04 22:00 | NUR ---
MS FUEL TECHNICIAN NOTE PATIENT ARRIVED ON UNIT, ALERT/ORIENTED X 3, PT ABLE TO MAKE NEEDS KNOWN. NO COMPLAINTS OF PAIN AT THIS TIME. PATIENT AMBULATORY WITH CANE AND SBA, UNSTEADY AT TIMES, HAS BRP. RIGHT AC #20G IV ACCESS INTACT AND FLUSHING WELL, SALINE LOCKED. LEFT UPPER CHEST WOUND DRESSING CLEAN, DRY AND INTACT. PATIENT BELONGINGS CHARTED, BAG WITH PATIENT'S POCKET KNIFE, CUTICLE CUTTER, AND DENTAL PRACTITIONER STORED IN NURSING STATION SAFE. SAFETY MEASURES IN PLACE: CALL LIGHT WITHIN REACH, SIDE RAILS UP X 2, BED LOCKED IN LOW POSITION. WILL CONTINUE TO MONITOR PATIENT
--- NOTE | 2021-07-04 22:08 | NUR ---
RN NOTE TRANSFERRED PATIENT TO ROOM 307-2 IN STABLE CONDITION. ALL MEDICATIONS AND BELONGINGS TRANSFERRED WITH PATIENT. ENDORSED TO EVELYN FOR CONTINUATION OF CARE.
[2021-07-04] MEDS: hydrALAZINE HCL IV 20 MG VIAL IV PRN (23:02)
--- NOTE | 2021-07-04 23:05 | NUR ---
MS RN NOTE PATIENT'S BP ELEVATED, REASSESSED AND BP IS 171/97, HR: 77. PRN HYDRALAZINE 10 MG IV GIVEN ORDERED. WILL CONTINUE TO MONITOR PATIENT
[2021-07-05 00:45] VITALS: BP 144/82
--- NOTE | 2021-07-05 06:27 | NUR ---
MS RN CLOSING NOTE PATIENT SLEEPING IN BED, APPEARS COMFORTABLE AND NOT IN ANY DISTRESS. PT STABLE ON RA, NO S/S OF DISTRESS OR SOB NOTED, BREATHING EVEN AND UNLABORED. NO OTHER SIGNIFICANT CHANGES THROUGHOUT SHIFT. SAFETY MEASURES IN PLACE: CALL LIGHT WITHIN REACH, SIDE RAILS UP X 2, BED LOCKED IN LOW POSITION, BED ALARM ON. WILL ENDORSE TO DAY SHIFT NURSE FOR CONTINUITY OF CARE
--- NOTE | 2021-07-05 07:30 | NUR ---
received pt. in am,oriented x3.vs stable.no complaints.
[2021-07-05 08:00] VITALS: BP 160/98
[2021-07-05] MEDS: ENSURE ENLIVE CHOC 237 ML CAN PO SCH ×3 (08:00→17:00)
[2021-07-05] MEDS: DOCUSATE SODIUM 100 MG CAPSULE PO SCH (09:08)
[2021-07-05] MEDS: PANTOPRAZOLE 40 MG TABLET.DR PO SCH (09:08)
[2021-07-05] MEDS: LamoTRIgine 25 MG TABLET PO SCH ×2 (09:09→18:07)
[2021-07-05] MEDS: SERTRALINE HCL 25 MG TABLET PO SCH (09:09)
[2021-07-05] MEDS: ASPIRIN 81 MG TAB.CHEW PO SCH (09:09)
[2021-07-05] MEDS: MORPHINE SULFATE SR 15 MG TABLET.SA PO SCH ×2 (09:09→18:07)
--- NOTE | 2021-07-05 12:30 | NUR ---
ko pa in and attempted bx lesion lt. upper chest.ko stated pt. could not tolerate.fresh dressing applied.no bx procedure done.
[2021-07-05] MEDS: HYDROCODONE/APAP 5/325MG TABLET PO PRN ×2 (13:07→21:26)
[2021-07-05 16:00] VITALS: BP 150/74
--- NOTE | 2021-07-05 18:00 | NUR ---
in addition to [facility]
[2021-07-05] MEDS: LISINOPRIL (5MG) 5 MG TABLET PO SCH (19:59)
[2021-07-05 20:00] VITALS: BP 150/83
--- NOTE | 2021-07-05 21:26 | NUR ---
RN NOTES PT REPORTING PAIN 8/10 ON A NUMERIC PAIN SCALE PRN NORCO GIVEN AND TOLERATED WELL. WILL CONTINUE TO MONITOR.
[2021-07-06] MEDS: HYDROCODONE/APAP 5/325MG TABLET PO PRN (02:33)
--- NOTE | 2021-07-06 02:33 | NUR ---
RN NOTES PT REPORTING PAIN 8/10 ON A NUMERIC PAIN SCALE PRN NORCO GIVEN AND TOLERATED WELL WILL CONTINUE TO MONITOR.
--- NOTE | 2021-07-06 06:44 | NUR ---
MR RN NOTES PT IN BED AWAKE NO RESPIRATORY DISTRESS OR PAIN REPORTED AT THIS TIME ALL DUE MEDS GIVEN AND TOLERATED WELL ALL NURSING NEEDS MET. CALL LIGHT WITHIN REACH WILL ENDORSE CARE TO DAY SHIFT NURSE.
[2021-07-06 08:00] VITALS: BP 139/73
[2021-07-06] MEDS: ENSURE ENLIVE CHOC 237 ML CAN PO SCH ×3 (08:00→17:25)
[2021-07-06] MEDS ORDERED: PSYLLIUM SEED 1 PKT PACKET PO ONE ×2 (08:30→12:00)
[2021-07-06] MEDS: ASPIRIN 81 MG TAB.CHEW PO SCH (08:53)
[2021-07-06] MEDS: SERTRALINE HCL 25 MG TABLET PO SCH (08:54)
[2021-07-06] MEDS: LamoTRIgine 25 MG TABLET PO SCH ×2 (08:54→17:23)
[2021-07-06] MEDS: DOCUSATE SODIUM 100 MG CAPSULE PO SCH (08:54)
[2021-07-06] MEDS: PANTOPRAZOLE 40 MG TABLET.DR PO SCH (08:54)
[2021-07-06] MEDS: MORPHINE SULFATE SR 15 MG TABLET.SA PO SCH ×2 (08:55→17:24)
[2021-07-06] MEDS ORDERED: DOCUSATE SODIUM 100 MG CAPSULE PO SCH (09:00)
--- NOTE | 2021-07-06 10:55 | NUR ---
MS RN OPENING NOTE PATIENT IN BED, AWAKE, APPEARS COMFORTABLE AND NOT IN ANY DISTRESS. ON RA, NO S/S OF DISTRESS OR SOB NOTED, BREATHING EVEN AND UNLABORED. IV ACCESS ON RAC #20 INTACT AND PATENT. SAFETY MEASURES IN PLACE: CALL LIGHT WITHIN REACH, SIDE RAILS UP X 2, BED LOCKED IN LOW POSITION, BED ALARM ON. WILL CONTINUE TO MONITOR.
--- NOTE | 2021-07-06 11:30 | NUR ---
RN NOTE 0800 SCHEDULED METAMUCIL NOT ADMINISTERED, WAS NOT AT [facility]. CALLED PHARMACY TO VERIFY, THEY CHANGED SCHEDULE TO 1200.
[2021-07-06 16:00] VITALS: BP 131/66
[2021-07-06 17:24] VITALS: BP 131/66
[2021-07-06] MEDS: LISINOPRIL (5MG) 5 MG TABLET PO SCH (17:24)
--- NOTE | 2021-07-06 18:42 | NUR ---
DISCHARGE NOTE RECEIVED ORDER FOR DISCHARGE. PATIENT IS AWAKE, A/O X 3, ABLE TO MAKE NEEDS KNOWN. PATIENT IS BREATHING EVENLY AND UNLABORED. NO SOB OR S/SX OF DISTRESS NOTED. GAVE REPORT TO LOWELL BLACKBURN FOR ELVIRA. GAVE REPORT TO EMT WELL. DISCHARGE INSTRUCTIONS AND EXITCARE FOLDER GIVEN TO EMT. PATIENT BELONGINGS ACCOUNTED FOR AND BELONGING SHEET SIGNED. IV ACCESS REMOVED, CATHETER TIP INTACT. PRESSURE DRESSING APPLIED. NO SIGNES OF BLEEDING NOTED. PATIENT LEFT IN STABLE CONDITION VIA AMBULANCE WITH EMT.
--- NOTE | 2021-07-06 18:44 | NUR ---
REFUSED DISCHARGE PHOTO.
== END 2021-07-06 18:42 | DRG 641 ==
LOC: ER 20:48 → MEDSG1 06-30 14:19 → MED 07-04 21:55
PROVIDERS: ATTEND Nurse Practitioner Acute Care
DX: R62.7 Adult failure to thrive (principal); N17.9 Acute kidney failure, unspecified; Z20.822 Contact with and (suspected) exposure to COVID-19; Z59.00 Homelessness unspecified; M25.552 Pain in left hip; Z96.642 Presence of left artificial hip joint; N18.9 Chronic kidney disease, unspecified; F03.90 Unspecified dementia, unspecified severity, without behavioral disturbance, psychotic disturbance, mood disturbance, and anxiety; E86.0 Dehydration; D64.9 Anemia, unspecified; Z73.6 Limitation of activities due to disability; M19.90 Unspecified osteoarthritis, unspecified site; Z79.899 Other long term (current) drug therapy; M51.36 Other intervertebral disc degeneration, lumbar region; I12.9 Hypertensive chronic kidney disease with stage 1 through stage 4 chronic kidney disease, or unspecified chronic kidney disease; F32.A Depression, unspecified; M77.9 Enthesopathy, unspecified; R22.2 Localized swelling, mass and lump, trunk; K59.00 Constipation, unspecified
CPT/HCPCS: 36415; 71045-TC; 73502; 80048-TC; 80053-TC; 81001; 82550-TC; 82570-TC; 83735-TC; 84100-TC; 84300-TC; 85025-TC; 87081-TC; 97116-TC; 97530-TC; A4217; A6253; A6403; C9803; G0378; J0360; J3490